=== PATIENT | male | born 1995 | race Caucasian/White ===

== ENCOUNTER 2016-08-05 09:10 | Emergency (ER) ==
[2016-08-05] MEDS ORDERED: EYE-STREAM OP STA (09:17)
[2016-08-05] MEDS ORDERED: PROPARACAINE 0.5% OP STA (09:17)
[2016-08-05] MEDS ORDERED: FLUORETS OP STA (09:17)
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
[2016-08-05 09:18] VITALS: BP 124/80; TEMP 97.6; BMI 21.4
== END 2016-08-05 09:22 | disposition left against medical advice (07) ==
LOC: ED 09:10
DX: H57.9 Unspecified disorder of eye and adnexa (principal)

== ENCOUNTER 2017-12-07 22:13 | Emergency (ER) | payer OTHER ==
[2017-12-07] MEDS ORDERED: REMERON PO STA (22:14)
--- NOTE | 2017-12-07 22:19 | ED.PDOC ---
General ED Provider: Dr. DIPIKA RIDLEY Chief Complaint: Medication Refill Stated Complaint: Patient states that he is out of mitazepine for one week. has been very anxious next apt with PCP is in 2 weeks. Time Seen by Physician: 22:25 Mode of Arrival: Walk-In Information Source: Patient Nursing and Triage Documentation Reviewed and Agree: Yes Does patient meet sepsis criteria?: No System Inflammatory Response Syndrome: Not Applicable Sepsis Protocol: For patient's 13 years and over: Temp is 96.8 and below OR 101 and greater Pulse >90 BPM Resp >20/minute Acutely Altered Mental Status Are patient's symptoms suggestive of a new infection, such as: -Pneumonia -Skin, Soft Tissue -Endocarditis -UTI -Bone, Joint Infection -Implantable Device -Acute Abdominal Infection -Wound Infection -Meningitis -Blood Stream Catheter Infection -Unknown Review of Systems - Review Of Systems Constitutional: Reports: No symptoms Eyes: Reports: No symptoms Ears, Nose, Mouth, Throat: Reports: No symptoms Respiratory: Reports: No symptoms Cardiac: Reports: No symptoms GI: Reports: No symptoms : Reports: No symptoms Musculoskeletal: Reports: No symptoms Skin: Reports: No symptoms Neurological: Reports: Anxiety, Depressed, Other (insomina ) Endocrine: Reports: No symptoms Hematologic/Lymphatic: Reports: No symptoms All Other Systems: Reviewed and Negative Past Medical History - Past Medical History Previously Healthy: Yes Endocrine: Reports: None Cardiovascular: Reports: None Respiratory: Reports: None Hematological: Reports: None Gastrointestinal: Reports: None Genitourinary: Reports: None Neuro/Psych: Reports: None Musculoskeletal: Reports: None Cancer: Reports: None - Surgical History General Surgical History: Reports: None - Family History Family History: Reports: Unknown - Social History Smoking Status: Current every day smoker, Light tobacco smoker Hx Substance Use: No Alcohol Screening: Occasionally Physical Exam - Physical Exam Appearance: Well-appearing, No pain distress, Well-nourished Eyes: DEBORAH, EOMI, Conjunctiva clear ENT: Ears normal, Nose normal, Oropharynx normal Respiratory: Airway patent, Breath sounds clear, Breath sounds equal, Respirations nonlabored Cardiovascular: RRR, Pulses normal, No rub, No murmur GI/: Soft, Nontender, No masses, Bowel sounds normal, No Organomegaly Musculoskeletal: Normal strength, ROM intact, No edema, No calf tenderness Skin: Warm, Dry, Normal color Neurological: Sensation intact, Motor intact, Reflexes intact, Cranial nerves intact, Alert, Oriented Psychiatric: Anxious, Depressed Critical Care Note - Critical Care Note Total Time (mins): 0 Course - Course Orders, Labs, Meds: Orders Category Date Time Status Mirtazapine [Remeron] MEDS 12/07/17 22:14 Discontinued 15 mg PO ONCE STA Medications Discontinued Medications Generic Name Dose Route Start Last Admin Trade Name Freq PRN Reason Stop Dose Admin Mirtazapine 15 mg 12/07/17 22:14 12/07/17 22:30 Remeron PO 12/07/17 22:15 15 mg ONCE STA Administration Vital Signs: Temp Pulse Resp BP Pulse Ox 12/07/17 22:13 99.4 F 97 H 20 143/89 H 97 Departure - Departure Time of Disposition: 22:25 Disposition: HOME SELF-CARE Discharge Problem: Depression Instructions: Depression (ED) Condition: Fair Pt referred to PMD for follow-up: Yes IPMP verified?: No Additional Instructions: Take Remron as prescribed your doctor will adjust dose accordingly Take Buspar as needed for anxiety Prescriptions: Buspirone HCl 10 mg PO TID PRN #45 tablet PRN Reason: anxiety Mirtazapine [Remeron] 15 mg PO BEDTIME #30 tablet Allergies/Adverse Reactions: Allergies codeine Adverse Reaction (Verified 12/07/17 22:23) Home Medications: Ambulatory Orders Buspirone HCl 10 mg PO TID PRN #45 tablet 12/07/17 Mirtazapine [Remeron] 15 mg PO BEDTIME #30 tablet 12/07/17 Mirtazapine [Remeron] 30 mg PO BEDTIME 12/07/17 Disposition Discussed With: Patient, Family Discharge Problem: Depression Qualifiers: Depression Type: other depression Qualified Code(s): F32.89 - Other specified depressive episodes
[2017-12-07 22:23] VITALS: BP 143/89; TEMP 99.4; BMI 22.6
== END 2017-12-07 22:35 | disposition home or self-care (01) ==
LOC: ED 22:13
DX: F32.89 Other specified depressive episodes (principal); F41.9 Anxiety disorder, unspecified; F17.210 Nicotine dependence, cigarettes, uncomplicated; Z76.0 Encounter for issue of repeat prescription
CPT/HCPCS: 99282